=== PATIENT | female | born 1990 | race Caucasian/White ===

== ENCOUNTER → 2018-03-06 14:29 | Outpatient (CLI) | payer OTHER, SELFPAY ==
[2018-03-06 15:27] LABS: Follicle Stimulating Hormone 7.63 mIU/mL; Prolactin 12.5 ng/mL (3.0-18.6)
[2018-03-06 16:41] LABS: Thyroid Stimulating Hormone 2.76 uIU/mL (0.47-4.68)
[2018-03-10 15:53] LABS: Estradiol 57 pg/mL
[2018-03-10 17:19] LABS: Inhibin B 117 pg/mL
[2018-03-11 15:42] LABS: Testosterone Free 6.9 pg/mL (0.1-6.4); Testosterone Total 65 ng/dL (2-45)
== END ==
DX: N91.2 Amenorrhea, unspecified (principal)
CPT/HCPCS: 36415; 82397; 82670; 83001; 83002; 84146; 84402; 84403; 84443

== ENCOUNTER → 2018-05-04 13:05 | Outpatient (CLI) | payer OTHER, SELFPAY ==
[2018-05-06 15:28] LABS: Progesterone 17.6 ng/mL
== END ==
DX: N91.2 Amenorrhea, unspecified (principal)
CPT/HCPCS: 36415; 84144

== ENCOUNTER → 2019-07-29 15:09 | Outpatient (CLI) | payer OTHER, SELFPAY ==
[2019-07-29 15:46] LABS: Add Manual Diff / Slide Review NO; Basophils Absolute Auto 100 /uL (0-100); Basophils Percent Auto 1.1 % (0-2); Eosinophils Absolute Auto 0 /uL (0-450); Eosinophils Percent Auto 0.4 % (2-4); Hematocrit 38.9 % (36-46); Hemoglobin 13.4 g/dL (12.0-16.0); Lymphocytes Absolute Auto 3200 /uL (1100-4500); Lymphocytes Percent Auto 28.9 % (25-40); Mean Corpuscular HGB Conc 34.3 % (30-36); Mean Corpuscular Hemoglobin 30.9 PG (26-34); Mean Corpuscular Volume 90.3 fL (80-100); Monocytes Absolute Auto 600 /uL (0-900); Monocytes Percent Auto 5.3 % (3-14); Neutrophils Absolute Auto 7100 /uL (1500-7000); Neutrophils Percent Auto 64.3 % (50-75); Platelet Count 298 X10^3/uL (150-400); Red Blood Cell Count 4.31 X10^6/uL (4.0-5.2); Red Cell Distribution Width 12.8 % (11.6-14.8)
[2019-07-29 15:50] LABS: Appearance Urine UA CLEAR; Bilirubin Urine UA NEGATIVE (NEGATIVE); Color Urine UA YELLOW; Glucose Urine UA NEGATIVE (Negative); Ketones Urine UA NEGATIVE (NEGATIVE); Leukocyte Esterase Urine UA NEGATIVE (NEGATIVE); Nitrite Urine UA NEGATIVE (Negative); Occult Blood Urine UA TRACE-INTACT (Negative); Protein Urine UA NEGATIVE (Negative); Specific Gravity Urine UA <=1.005 (1.000-1.035); Urobilinogen Urine UA 0.2 E.U./dL (0.2)
[2019-07-29 17:08] LABS: Hepatitis B Surface Antigen NEGATIVE s/c (NEGATIVE)
[2019-07-29 17:24] LABS: HIV 1 & 2 Ab/Ag 4th Gen Combo NEGATIVE (NEGATIVE); Hep C Virus Ab w/Reflex Quant NEGATIVE s/c (NEGATIVE)
[2019-07-31 20:08] LABS: RPR Screen Nonreactive (Nonreactive)
== END ==
PROVIDERS: Visit Provider Obstetrics & Gynecology
DX: Z34.01 Encounter for supervision of normal first pregnancy, first trimester (principal)
CPT/HCPCS: 36415; 80055; 81003; 86787; 86803; 86850; 86900; 86901; 87077; 87086; 87389

== ENCOUNTER → 2019-08-25 14:20 | Outpatient (CLI) | payer OTHER, SELFPAY ==
[2019-08-25 14:38] LABS: Specimen Label NATERA
== END ==
PROVIDERS: Visit Provider Obstetrics & Gynecology
DX: Z34.01 Encounter for supervision of normal first pregnancy, first trimester (principal)
CPT/HCPCS: 36415; 99001

== ENCOUNTER → 2019-10-05 12:32 | Outpatient (CLI) | payer OTHER, SELFPAY ==
[2019-10-11 15:06] LABS: AFP, Serum 38.1 ng/mL; Calc Gestational Age 15.9; Est Date Determined by ULTRASOUND; Maternal Weight 181 lbs; Number of Fetuses 1; Prev Pregnancies Down Syndrome NOT GIVEN
== END ==
PROVIDERS: Visit Provider Obstetrics & Gynecology
DX: Z34.02 Encounter for supervision of normal first pregnancy, second trimester (principal)
CPT/HCPCS: 36415; 82105

== ENCOUNTER → 2019-10-27 14:04 | Outpatient (CLI) | payer OTHER, SELFPAY ==
--- NOTE | 2019-10-27 14:05 | DI.US.S_ITS ---
PROCEDURE: US OB >= 14 WEEKS FETUS INDICATIONS: ANATOMY OUTSIDE/PRIOR DATING DATA: Last menstrual period (LMP): 05/29/19. LMP-based estimated date of delivery (MEGA): 03/04/20. First dating scan (date and location): 10/27/19. Estimated date of delivery (MEGA) from first dating scan: 03/12/20. TECHNIQUE: Real-time scanning was performed of the fetus, with image documentation and biometric measurements. Endovaginal scanning: No COMPARISON: [facility], [place], OB < 14 WEEKS, 08/25/2019, 14:07. FINDINGS: General: A single living intrauterine gestation is present. Presentation: Breech. Placenta: Placental position is anterior, and low-lying with the inferior edge of the placenta 2.2 cm above the internal cervical os. Amniotic fluid index: 13.6 cm, normal range is 5-24 cm. heart rate: 149 beats per minute. Maternal cervical canal: 3.8 cm long. Normal lower limit is 2.5 cm. biometrics: Biparietal diameter: 20 weeks 2 days Head circumference: 20 weeks 4 days Abdominal circumference: 20 weeks 2 days Femur length: 20 weeks 3 days Estimated gestational age from initial scan: not applicable. Composite gestational age from present scan: 20 weeks 3 days Estimated weight and percentile: 340 g Measurement variability for biometric dating: +/- 7 days from 14 weeks to 15 weeks 6 days gestation, +/- 10 days from 16 weeks to 21 weeks 6 days gestation, +/- 2 weeks from 22 weeks to 27 weeks 6 days gestation, +/- 3 weeks for 28 weeks gestation or later. weight reference: 4500 g or EFW >90/95% is considered macrosomia or large for gestational age. EFW <10% is small for gestational age. EFW 5% or less is considered intra-uterine growth restriction. Anatomic survey: Neuro: Ventricles are non-dilated at less than 10 mm. Cisterna magna is normal at 3-11 mm. Cerebellum is normal in size and morphology. Cord plexus cyst. Nuchal skin fold: Normal at less than 6 mm between 14-21 weeks gestational age. Face: Nose and lips, facial profile are normal. Spine: No evidence for spina bifida. Heart: 4-chambered heart is present, with normal ventricular outflow tracts. Diaphragm: Diaphragm is intact. Stomach: Left-sided stomach is present. Kidneys: No hydronephrosis. Normal is less than 5 mm in 2nd trimester, less than 7 mm in 3rd trimester. Cord: 3-vessel cord has orthotopic insertion. Bladder: Normal in size. Extremities: All 4 extremities identified. IMPRESSION: 1. Single living IUP with mean composite gestational age of 20 weeks 3 days corresponding to ultrasound MEGA of 03/12/20. 2. Small choroid plexus cyst present: in isolation, no association with aneuploidy. Anatomic survey otherwise is normal. 3. Low lying anterior placenta. Followup recommended. Dictated by: Eliu Russell [facility] Interpreted: Marcie Rosales MD on 10/27/2019 at 16:56 Approved by: Marcie Rosales M.D. on 10/27/2019 at 19:54
== END ==
PROVIDERS: Referring Provider Obstetrics & Gynecology; Visit Provider Obstetrics & Gynecology
DX: Z34.02 Encounter for supervision of normal first pregnancy, second trimester (principal); Z3A.20 20 weeks gestation of pregnancy
CPT/HCPCS: 76811

== ENCOUNTER → 2019-12-24 11:06 | Outpatient (CLI) | payer OTHER, SELFPAY ==
[2019-12-24 12:46] LABS: Hematocrit 33.5 % (36-46); Hemoglobin 11.4 g/dL (12.0-16.0)
[2019-12-24 12:59] LABS: GTT (PREG) 1 Hour PP 50gm Dose 180 mg/dL (76-139)
== END ==
PROVIDERS: Referring Provider Obstetrics & Gynecology; Visit Provider Obstetrics & Gynecology
DX: Z34.02 Encounter for supervision of normal first pregnancy, second trimester (principal); Z3A.26 26 weeks gestation of pregnancy
CPT/HCPCS: 36415; 82950; 85014; 85018

== ENCOUNTER → 2019-12-31 11:57 | Outpatient (CLI) | payer OTHER, SELFPAY ==
--- NOTE | 2019-12-31 11:58 | DI.US.S_ITS ---
PROCEDURE: US OB FOLLOW UP INDICATIONS: F/U CHOROID PLEXUS CYST AND PLACENTAL LOCATION OUTSIDE/PRIOR DATING DATA: Last menstrual period (LMP): 02/26/19. LMP-based estimated date of delivery (MEGA): 03/04/20. First dating scan (date and location): 10/27/19. Estimated date of delivery (MEGA) from first dating scan: 03/12/20. TECHNIQUE: Real-time scanning was performed of the fetus, with image documentation. COMPARISON: [facility], OB >= 14 WEEKS FETUS, 10/27/2019, 14:19. [facility], , OB < 14 WEEKS, 08/25/2019, 14:07. [facility], , OB < 14 WEEKS, 08/03/2019, 8:19. FINDINGS: A single living intrauterine gestation is present. Presentation: Vertex. Placenta: Placental position is anterior, without previa. Amniotic fluid index: 13.4 cm, normal range is 5-24 cm. heart rate: 139 beats per minute. Maternal cervical canal: 4.6 cm long. Estimated gestational age from initial scan: 29 weeks 5 days Miscellaneous: No choroid plexus cyst identified on current exam. IMPRESSION: 1. No visualized choroid plexus cyst. Dictated by: Alexa Castrejon M.D. on 12/31/2019 at 13:56 Approved by: Alexa Castrejon M.D. on 12/31/2019 at 14:03
== END ==
PROVIDERS: Referring Provider Obstetrics & Gynecology; Visit Provider Obstetrics & Gynecology
DX: O35.0XX0 Maternal care for (suspected) central nervous system malformation in fetus, not applicable or unspecified (principal); Z3A.29 29 weeks gestation of pregnancy
CPT/HCPCS: 76816

== ENCOUNTER → 2020-01-03 08:32 | Outpatient (CLI) | payer OTHER, SELFPAY ==
[2020-01-03 10:01] LABS: Glucose Fasting Gestational 91 mg/dL (76-95)
[2020-01-03 10:48] LABS: Glucose 1 Hour Gest 198 mg/dL (76-180)
[2020-01-03 12:02] LABS: Glucose Tol Interp,Gestational INTERPRETATION
[2020-01-03 12:02] LABS: Glucose 2 Hour Gest 184 mg/dL (76-155)
[2020-01-03 13:23] LABS: Glucose 3 Hour Gest 170 mg/dL (76-140)
== END ==
PROVIDERS: PCP Obstetrics & Gynecology; Referring Provider Obstetrics & Gynecology; Visit Provider Obstetrics & Gynecology
DX: O99.810 Abnormal glucose complicating pregnancy (principal)
CPT/HCPCS: 36415; 82951; 82952

== ENCOUNTER → 2020-01-25 15:54 | Outpatient (CLI) | payer OTHER, SELFPAY ==
--- NOTE | 2020-01-25 15:56 | DI.US.S_ITS ---
PROCEDURE: US OB LIMITED INDICATIONS: OB GROWTH US OUTSIDE/PRIOR DATING DATA: Last menstrual period (LMP): 05/29/2019. LMP-based estimated date of delivery (MEGA): 03/04/2020. First dating scan (date and location): 10/27/2019. [facility]. Estimated date of delivery (MEGA) from first dating scan: 03/12/2020. TECHNIQUE: Real-time scanning was performed of the fetus, with image documentation and biometric measurements. Biophysical profile was also obtained. Endovaginal scanning: Not performed. COMPARISON: [facility], [place], US OB >= 14 WEEKS FETUS, 01/19/2020, 14:02. FINDINGS: General: A single living intrauterine gestation is present. Presentation: Vertex. Placenta: Placental position is anterior, without previa. Amniotic fluid index: 17.3 cm, normal range is 5-24 cm. heart rate: 153 beats per minute. Maternal cervical canal: Not well-seen. biometrics: Biparietal diameter: 8.5 cm. 34 weeks 3 days. Head circumference: 31.8 cm. 35 weeks 5 days. Abdominal circumference: 29.1 cm. 33 weeks 1 day. Femur length: 6.6 cm. 34 weeks 1 day. Estimated gestational age from initial scan: 33 weeks 2 days. Composite gestational age from present scan: 34 weeks 2 days. Estimated weight and percentile: 2282 g. 58th percentile. Measurement variability for biometric dating: +/- 7 days from 14 weeks to 15 weeks 6 days gestation, +/- 10 days from 16 weeks to 21 weeks 6 days gestation, +/- 2 weeks from 22 weeks to 27 weeks 6 days gestation, +/- 3 weeks for 28 weeks gestation or later. weight reference: 4500 g or EFW >90/95% is considered macrosomia or large for gestational age. EFW <10% is small for gestational age. EFW 5% or less is considered intra-uterine growth restriction. IMPRESSION: 1. [place] living intrauterine at 34 weeks 2/7 days based on today's ultrasound. This is concordant with the prior ultrasound +/- 3 weeks. Estimated weight is 2282 g. 58th percentile. 2. Normal placenta and amniotic fluid. Dictated by: Hola Nickerson M.D. on 01/25/2020 at 16:50 Approved by: Hola Nickerson M.D. on 01/25/2020 at 16:54
== END ==
PROVIDERS: PCP Obstetrics & Gynecology; Referring Provider Obstetrics & Gynecology; Visit Provider Obstetrics & Gynecology
DX: O24.419 Gestational diabetes mellitus in pregnancy, unspecified control (principal); Z3A.34 34 weeks gestation of pregnancy
CPT/HCPCS: 76815

== ENCOUNTER 2020-01-31 13:10 | Outpatient (CLI) | payer OTHER, SELFPAY ==
--- NOTE | 2020-01-31 13:42 | P.TNLD_ITS ---
Visit Information Visit Information Date of evaluation: 01/31/20 Primary OB Provider: Sahara Coelho Reason for Evaluation: Yes non-stress test Comments/Additional reasons for admission: This patient is a 29yo P0 @33 weeks with GMDA1, presenting for scheduled testing with no obstetric complaints. 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) UTI (urinary tract infection) (Acute) Family History Father Liver cirrhosis Family/Other Leukemia Social History marital status: pets and animals: Yes (Has X 5 cats and aware) education level: college occupational status: employed current occupational exposures/hazards: No special liban needs: Yes (Zoroastrianism) leisure activities: exercise Smoking Status: Never smoker Evaluation Evaluation Baseline heart rate: 120 Variability: Moderate (11-25) monitor accelerations: Present monitor decelerations: Absent Category of Tracing: I Diagnosis, Plan/Disposition Plan/Disposition Plan: Discharge home with routine follow up. OB Disposition: home
== END 2020-01-31 13:40 | disposition home or self-care (01) ==
LOC: LABOR 13:20 → OB 15:10
PROVIDERS: PCP Obstetrics & Gynecology; Referring Provider Obstetrics & Gynecology; Visit Provider Obstetrics & Gynecology
DX: O24.419 Gestational diabetes mellitus in pregnancy, unspecified control (principal); Z3A.32 32 weeks gestation of pregnancy
CPT/HCPCS: 59025; G0378; G0379

== ENCOUNTER 2020-02-03 11:40 | Outpatient (CLI) | payer OTHER, SELFPAY | END 2020-02-03 12:15 | disposition home or self-care (01) | LOC: LABOR 12:17 → OB 02-04 11:57 | PROVIDERS: PCP Obstetrics & Gynecology; Referring Provider Obstetrics & Gynecology; Visit Provider Obstetrics & Gynecology | DX: O24.419 Gestational diabetes mellitus in pregnancy, unspecified control (principal); Z3A.33 33 weeks gestation of pregnancy | CPT/HCPCS: 59025; G0378; G0379 ==

== ENCOUNTER 2020-02-07 14:26 | Outpatient (CLI) | payer OTHER, SELFPAY ==
--- NOTE | 2020-02-07 15:29 | PM.OBTRLD ---
Visit Information Visit Information Date of evaluation: 02/07/20 Primary OB Provider: Sahara Coelho Reason for Evaluation: Yes non-stress test Comments/Additional reasons for admission: Patient is a 29yo P0 @33 weeks with GDMA1 and borderline LGA presenting for routine testing with no obstetrical complaints. Vital Signs Vital Signs: 115/75, HR 85 PFSH Social History marital status: pets and animals: Yes (Has X 5 cats and aware) education level: college occupational status: employed current occupational exposures/hazards: No special liban needs: Yes (Mandaen) leisure activities: exercise Smoking Status: Never smoker Evaluation Evaluation Baseline heart rate: 120 Variability: Average (6-10) monitor accelerations: Present monitor decelerations: Absent Contraction Frequency (minutes): 5 Category of Tracing: I Diagnosis, Plan/Disposition Plan/Disposition Plan: Home with routine follow up. OB Disposition: home
== END 2020-02-07 15:00 | disposition home or self-care (01) ==
LOC: LABOR 15:55 → OB 02-08 11:37
PROVIDERS: PCP Obstetrics & Gynecology; Referring Provider Obstetrics & Gynecology; Visit Provider Obstetrics & Gynecology
DX: O24.419 Gestational diabetes mellitus in pregnancy, unspecified control (principal); Z3A.33 33 weeks gestation of pregnancy
CPT/HCPCS: 59025; G0378; G0379

== ENCOUNTER 2020-02-09 13:40 | Outpatient (CLI) | payer OTHER, SELFPAY | END 2020-02-09 14:09 | disposition home or self-care (01) | LOC: LABOR 13:43 → OB 02-15 12:33 | PROVIDERS: PCP Obstetrics & Gynecology; Referring Provider Obstetrics & Gynecology; Visit Provider Obstetrics & Gynecology | DX: O24.419 Gestational diabetes mellitus in pregnancy, unspecified control (principal); Z3A.34 34 weeks gestation of pregnancy | CPT/HCPCS: 59025; G0378; G0379 ==

== ENCOUNTER 2020-02-14 14:28 | Outpatient (CLI) | payer OTHER, SELFPAY ==
--- NOTE | 2020-02-14 15:09 | P.TNLD_ITS ---
Visit Information Visit Information Date of evaluation: 02/14/20 Primary OB Provider: Sahara Coelho Reason for Evaluation: Yes non-stress test Comments/Additional reasons for admission: Patient is a P0 with GDMA1 who p resents from home for decreased movement with no other obstetrical complaints. 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) UTI (urinary tract infection) (Acute) Family History Father Liver cirrhosis Family/Other Leukemia Social History marital status: pets and animals: Yes (Has X 5 cats and aware) education level: college occupational status: employed current occupational exposures/hazards: No special liban needs: Yes (Denominational) leisure activities: exercise Smoking Status: Never smoker Review of Systems Constitutional Constitutional: Reports system reviewed and no additional complaints, except as documented Exam Vital Signs (past 8 hours): 114/77, HR 82 Evaluation Evaluation Baseline heart rate: 120 Variability: Moderate (11-25) monitor accelerations: Present monitor decelerations: Absent Contraction Frequency (minutes): 6 Category of Tracing: I Diagnosis, Plan/Disposition Plan/Disposition Plan: BPP ordered, per DI patient sent to imaging department. OB Disposition: home
--- NOTE | 2020-02-14 15:09 | DI.US.S_ITS ---
PROCEDURE: US OB BIOPHYSICAL PROFILE INDICATIONS: DECREASED MOVEMENT OUTSIDE/PRIOR DATING DATA: Last menstrual period (LMP): 05/29/19. LMP-based estimated date of delivery (MEGA): 03/04/20. First dating scan (date and location): 10/27/19. Estimated date of delivery (MEGA) from first dating scan: 03/12/20. TECHNIQUE: Real-time scanning was performed of the fetus for biophysical profile, with image documentation. Color and pulse Doppler interrogation was also performed of the umbilical artery near its insertion into the placenta. Endovaginal scanning: Not needed COMPARISON: None. FINDINGS: General: A single living intrauterine gestation is present. Presentation: Vertex. Placenta: Placental position is anterior, without previa. Amniotic fluid index: 14.5 cm, normal range is 5-24 cm. heart rate: 153 beats per minute. Maternal cervical canal: Not well-seen due to vertex presentation. Biophysical profile: 8 of 8 possible points, normal. Tone: 2 points. Movement: 2 points. Respiration: 2 points. Largest pocket of fluid: 2 points. IMPRESSION: Biophysical profile of yields age of 8 possible points, viable intrauterine gestation in vertex presentation with normal amniotic fluid volume. Dictated by: Franklyn Carrillo M.D. on 02/14/2020 at 16:42 Approved by: Franklyn Carrillo M.D. on 02/14/2020 at 16:44
== END 2020-02-14 15:20 | disposition home or self-care (01) ==
LOC: LABOR 15:17 → OB 02-15 15:01
PROVIDERS: PCP Obstetrics & Gynecology; Referring Provider Obstetrics & Gynecology; Visit Provider Obstetrics & Gynecology
DX: O36.8130 Decreased fetal movements, third trimester, not applicable or unspecified (principal); O24.419 Gestational diabetes mellitus in pregnancy, unspecified control; Z3A.34 34 weeks gestation of pregnancy
CPT/HCPCS: 59025; 76819; G0378; G0379

== ENCOUNTER → 2020-02-16 09:05 | Outpatient (CLI) | payer OTHER, SELFPAY ==
[2020-02-17 16:30] LABS: Strep Grp B PCR NEG for Grp B Strep
== END ==
PROVIDERS: PCP Obstetrics & Gynecology; Visit Provider Obstetrics & Gynecology
DX: Z34.03 Encounter for supervision of normal first pregnancy, third trimester (principal); Z3A.35 35 weeks gestation of pregnancy
CPT/HCPCS: 87653

== ENCOUNTER 2020-02-21 11:17 | Outpatient (CLI) | payer OTHER, SELFPAY ==
--- NOTE | 2020-02-21 11:42 | PM.OBTRLD ---
Visit Information Visit Information Date of evaluation: 02/21/20 Primary OB Provider: Sahara Coelho Reason for Evaluation: Yes non-stress test Comments/Additional reasons for admission: This patient is a 29yo P0 @35+5 with well controlled GDMA1, presenting for an NST as part of her weekly testing. 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) UTI (urinary tract infection) (Acute) Family History Father Liver cirrhosis Family/Other Leukemia Social History marital status: pets and animals: Yes (Has X 5 cats and aware) education level: college occupational status: employed current occupational exposures/hazards: No special liban needs: Yes ([employer]ism) leisure activities: exercise Smoking Status: Never smoker Review of Systems Constitutional Constitutional: Reports system reviewed and no additional complaints, except as documented Evaluation Evaluation Baseline heart rate: 120 Variability: Moderate (11-25) monitor accelerations: Present monitor decelerations: Absent Category of Tracing: I Diagnosis, Plan/Disposition Plan/Disposition Plan: Home with routine precautions. OB Disposition: home
== END 2020-02-21 12:13 | disposition home or self-care (01) ==
LOC: LABOR 11:22 → OB 02-22 10:59
PROVIDERS: PCP Obstetrics & Gynecology; Referring Provider Obstetrics & Gynecology; Visit Provider Obstetrics & Gynecology
DX: O24.419 Gestational diabetes mellitus in pregnancy, unspecified control (principal); Z3A.35 35 weeks gestation of pregnancy
CPT/HCPCS: 59025; G0378; G0379

== ENCOUNTER 2020-02-28 11:10 | Outpatient (CLI) | payer OTHER, SELFPAY ==
--- NOTE | 2020-02-28 13:57 | PM.OBTRLD ---
Visit Information Visit Information Date of evaluation: 02/28/20 Primary OB Provider: Sahara Coelho Reason for Evaluation: Yes non-stress test Comments/Additional reasons for admission: Patient presenting for NST as part of testing for GDMA1. 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) UTI (urinary tract infection) (Acute) Family History Father Liver cirrhosis Family/Other Leukemia Social History marital status: pets and animals: Yes (Has X 5 cats and aware) education level: college occupational status: employed current occupational exposures/hazards: No special liban needs: Yes (Nondenominational) leisure activities: exercise Smoking Status: Never smoker Evaluation Evaluation Baseline heart rate: 120 Variability: Moderate (11-25) monitor accelerations: Present monitor decelerations: Absent Category of Tracing: I Diagnosis, Plan/Disposition Plan/Disposition Plan: Home with routine precautions and follow up. OB Disposition: home
== END 2020-02-28 11:29 | disposition home or self-care (01) ==
LOC: OB 02-29 11:04
PROVIDERS: PCP Obstetrics & Gynecology; Referring Provider Obstetrics & Gynecology; Visit Provider Obstetrics & Gynecology
DX: O24.419 Gestational diabetes mellitus in pregnancy, unspecified control (principal); Z3A.36 36 weeks gestation of pregnancy
CPT/HCPCS: 59025; G0378; G0379

== ENCOUNTER 2020-03-05 21:09 | Outpatient (CLI) | payer OTHER, SELFPAY ==
--- NOTE | 2020-03-06 08:07 | P.TNLD_ITS ---
Visit Information Visit Information Date of evaluation: 03/06/20 Primary OB Provider: Sahara Coelho Reason for Evaluation: Yes non-stress test non-stress test reason: decreased movement Comments/Additional reasons for admission: Patient reports decreased movement @37+5, no other complaints. 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) UTI (urinary tract infection) (Acute) Family History Father Liver cirrhosis Family/Other Leukemia Social History marital status: pets and animals: Yes (Has X 5 cats and aware) education level: college occupational status: employed current occupational exposures/hazards: No special liban needs: Yes (Bahai) leisure activities: exercise Smoking Status: Never smoker Review of Systems Constitutional Constitutional: Reports system reviewed and no additional complaints, except as documented Evaluation Evaluation Baseline heart rate: 120 Variability: Moderate (11-25) monitor accelerations: Present monitor decelerations: Absent Category of Tracing: I Diagnosis, Plan/Disposition Plan/Disposition Plan: Home with plan for BPP at scheduled visit tomorrow. OB Disposition: home
== END 2020-03-05 21:55 | disposition home or self-care (01) ==
LOC: LABOR 21:13 → OB 03-06 11:35
PROVIDERS: PCP Obstetrics & Gynecology; Referring Provider Obstetrics & Gynecology; Visit Provider Obstetrics & Gynecology
DX: O36.8130 Decreased fetal movements, third trimester, not applicable or unspecified (principal); O24.419 Gestational diabetes mellitus in pregnancy, unspecified control; Z3A.37 37 weeks gestation of pregnancy
CPT/HCPCS: 59025; G0378; G0379

== ENCOUNTER 2020-03-13 12:46 | Outpatient (CLI) | payer OTHER, SELFPAY | END 2020-03-13 13:30 | disposition home or self-care (01) | LOC: OB 03-20 10:42 | PROVIDERS: PCP Obstetrics & Gynecology; Referring Provider Obstetrics & Gynecology; Visit Provider Obstetrics & Gynecology | DX: O24.410 Gestational diabetes mellitus in pregnancy, diet controlled (principal); Z3A.38 38 weeks gestation of pregnancy | CPT/HCPCS: 59025; G0378; G0379 ==

== ENCOUNTER 2020-03-14 09:45 | Inpatient (IN) | payer OTHER, SELFPAY ==
--- NOTE | 2020-03-14 11:08 | P.HPOB_ITS ---
OB HPI Date/Time Date of admission: 03/14/20 Date Patient Seen: 03/14/20 Time Patient Seen: 10:45 History of Present Condition Chief complaint: L&B : 1 Para: 0 Estimated Date of Delivery: 03/22/20 Estimated Gestational Age (weeks): 38.5 Narrative: Christelle Gutiérrez is a 29 year old female @ [id number] by early US who presents for evaluation of labor. PROM, large gush of clear fluid at 0600, followed by contractions. Contractions are now mild (3-4/10) and 3-4 minutes apart. +FM. No VB. Routine PN care w/ . complicated by GDMA1 and HSV1 (on suppression). History of Present care: good care Dating criteria: based on 1st trimester US only Ultrasounds: normal mid trimester US and abnormal US findings (Choroid plexus cyst-resolved ) Obstetrical complications: gestational diabetes Medical complications: psychiatric (PTSD, depression and anxiety, stable without medication.) Preadmission Labs Blood type: B (+) positive -: Antibody screen: negative, GBS status: negative, HBsAG: negative, HIV: negative, HSV 1: positive, HSV 2: negative and RPR/VDLR: negative -: Rubella: immune and Varicella: immune HCT: 33.6 HCAB: negative Cell-free DNA: negative 1 hr GTT: 180 Evaluation Evaluation Baseline heart rate: 130 Variability: Moderate (11-25) monitor accelerations: Present monitor decelerations: Absent Contraction Frequency (minutes): 3 Uterine Contraction Intensity: Mild Category of Tracing: I Cervical dilation (cm): 1 Cervical effacement (%): 80 station: -2 Non-invasive Membranes Rupture Test: positive PFSH Medical History Anxiety (Acute) Depression (Acute) 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) UTI (urinary tract infection) (Acute) Family History Father Liver cirrhosis Family/Other Leukemia Social History marital status: pets and animals: Yes (Has X 5 cats and aware) education level: college occupational status: employed current occupational exposures/hazards: No special liban needs: Yes ([employer]) leisure activities: exercise Smoking Status: Never smoker Meds Home Medications and Allergies Home Medications Medication Instructions Recorded Confirmed Type nitrofurantoin 100 mg PO .PRN cap 07/29/19 03/13/20 History monohydrate/macrocrystals 100 mg capsule prenat.vits,vivi,swm-rovs-ksxgh 1 tab PO DAILY 07/29/19 03/13/20 History blood sugar diagnostic #120 each 01/04/20 03/13/20 Rx blood-glucose meter #1 each 01/04/20 03/13/20 Rx lancets #120 each 01/04/20 03/13/20 Rx Double Electric breast Pump and #1 each 01/28/20 03/13/20 Rx Supplies valacyclovir 500 mg tablet 500 mg PO DAILY #30 tab 02/21/20 03/13/20 Rx Allergies Allergy/AdvReac Type Severity Reaction Status Date / Time No Known Drug Allergies Allergy Verified 03/13/20 11:44 Review of Systems Review of Systems ROS: Yes All systems reviewed with the patient and are negative except as otherwise documented Exam Vital Signs (past 8 hours): BP-135/88, HR-88bpm, RR-16/min, T97.8 Presentation: vertex Amniotic Fluid: clear Assessment and Plan Assessment and Plan Assessment and Plan narrative: Counseled patient on options for expectant vs. active management of PROM. Pt elects immediate admission w/ expectant management. Admit, routine orders w/ SL IV, CBC, T&S and rapid COVID testing. Diabetic diet ordered. Q1hr doppler FHTs until in active labor. Will augment labor if not active by6pm. Reassess in 6 hours or sooner, PRN. Time Spent with Patient Total time spent with greater than 50% in coordination of care (as documented) at patient's floor/unit and/or counseling patient:: 15-24 minutes
[2020-03-14 12:25] LABS: Add Manual Diff / Slide Review NO; Basophils Absolute Auto 100 /uL (0-100); Basophils Percent Auto 0.5 % (0-2); Eosinophils Absolute Auto 0 /uL (0-450); Eosinophils Percent Auto 0.2 % (2-4); Hematocrit 36.3 % (36-46); Hemoglobin 12.3 g/dL (12.0-16.0); Lymphocytes Absolute Auto 2700 /uL (1100-4500); Mean Corpuscular HGB Conc 33.8 % (30-36); Mean Corpuscular Hemoglobin 29.6 PG (26-34); Mean Corpuscular Volume 87.7 fL (80-100); Monocytes Absolute Auto 700 /uL (0-900); Monocytes Percent Auto 5.7 % (3-14); Neutrophils Absolute Auto 9400 /uL (1500-7000); Neutrophils Percent Auto 72.6 % (50-75); Platelet Count 228 X10^3/uL (150-400); Red Blood Cell Count 4.14 X10^6/uL (4.0-5.2); Red Cell Distribution Width 13.4 % (11.6-14.8); White Blood Cell Count 12.9 X10^3/uL (4.5-11.0)
[2020-03-14 13:15] LABS: COVID19 -Nasal RAPID Negative (Negative)
--- NOTE | 2020-03-14 17:29 | P.PNOB_ITS ---
Date/Time Date Patient Seen: 03/14/20 Time Patient Seen: 17:20 Pelvic Exam Dilation (cm): 4 Effacement (%): 90 station: -2 Amniotic membrane status: Leaking Comments: Breathing through regular contractions. Wants to discuss pain relief options. VS: BP 134/88, HR 8bpm, RR16/min Contractions Date/Time contractions began: 1300 Contractions on admission: irregular Monitor mode: Palpation Pitocin rate (mU/min): 0 Contraction frequency (min): 4 Contraction duration (min): 1 Contraction pattern: Regular Contraction intensity: Moderate Status status: Category l Heart Rate Baseline: 120 Comments: Reassuring by IA Q 60 minutes. Assessment and Plan Assessment: active labor Plan: continuous present management Comments: Counseled patient on all pain relief options: IV, epidural, & hydrotherapy. Patient elects epidural. Will switch to continuous EFM, RN noti fied. Continuous labor support throughout epidural placement. Reassess in 4 hours or sooner, PRN.
[2020-03-14] MEDS: fentaNYL 100 MCG/2 ML INJ IV ×3 (17:52→19:51)
[2020-03-14] MEDS: LACTATED RINGERS 1,000 ML 100 ML IV ×2 (17:53→22:28)
[2020-03-14] MEDS: FENT 2MCG/ML BUPIV 0.125% EPI 200 MCG/100 ML PLAST..BAG 10 MCG EPIDURAL (20:00)
[2020-03-14 21:05] VITALS: BP 131/77
[2020-03-14] MEDS: OXYTOCIN PREMIX 30 UNIT/500 ML PLAST..BAG IV (22:28)
--- NOTE | 2020-03-14 22:37 | PM.OBPNLAB ---
Date/Time Date Patient Seen: 03/14/20 Time Patient Seen: 21:20 Pain Control Pain control: epidural Comments: Patient comfortable and happy w/ epidural. Has been able to rest. VS: BP 109/58, HR 83bpm, RR 18/min, T36.9C Temporal Pelvic Exam Dilation (cm): 7 Effacement (%): 90 station: -1 Amniotic membrane status: Leaking Comments: Manual AROM of forebag during exam Contractions Contractions on admission: irregular Monitor mode: Palpation Pitocin rate (mU/min): 0 Contraction frequency (min): 5 Contraction duration (min): 1 Contraction pattern: Regular Contraction intensity: Moderate Status status: Category l Heart Rate Baseline: 110 Monitor Accelerations: Present Monitor Decelerations: Absent Monitor Variability: Moderate Assessment and Plan Assessment: active labor Plan: continuous present management Comments: Counseled on spaced contractions and will recommend pitocin augmentation if contractions continue to space. Encourage continued position changes. Reassess in 4 hours or sooner, PRN.
--- NOTE | 2020-03-15 01:23 | PM.OBPNLAB ---
Date/Time Date Patient Seen: 03/15/20 Time Patient Seen: 01:20 Pain Control Pain control: epidural Comments: Remains comfortable and able to sleep. VS: BP 134/70, HR 103bpm, T36.6C Temporal Pelvic Exam Dilation (cm): 7 Effacement (%): 90 station: -1 Amniotic membrane status: Leaking Contractions Contractions on admission: irregular Monitor mode: Palpation Pitocin rate (mU/min): 0 Contraction frequency (min): 5 Contraction duration (min): 1 Contraction pattern: Regular Contraction intensity: Moderate Status status: Category l Heart Rate Baseline: 110 Monitor Accelerations: Present Monitor Decelerations: Absent Monitor Variability: Moderate Assessment and Plan Assessment: active labor Plan: begin patient augmentation Comments: A: Term primipara Active labor, now slowed SROM X 19 hours without sx of infection Cat I FHR P: Counseled on minimal change in last 4 hours w/ slightly spaced contractions. Recommend pitocin augmentation and position changes w/ peanut ball, patient agrees. Reassess in 4 hours or sooner, PRN.
[2020-03-15] MEDS: FENT 2MCG/ML BUPIV 0.125% EPI 200 MCG/100 ML PLAST..BAG 10 MCG EPIDURAL (03:22)
[2020-03-15] MEDS: LACTATED RINGERS 1,000 ML 100 ML IV (03:31)
--- NOTE | 2020-03-15 04:32 | PM.OBPNLAB ---
Date/Time Date Patient Seen: 03/15/20 Time Patient Seen: 04:20 Pain Control Pain control: epidural Comments: Patient now comfortable and sleeping. Epidural was replaced @ 0300 d/t patient persistent complaint of increasing back pain and pressure. RN by MAMTA @ 0244 was unchanged. RN has been unable to increase pitocin until recently because of patient's discomfort. VS: BP 133/68, HR 106, T37.7C Temporal Pelvic Exam Dilation (cm): 7 Effacement (%): 90 station: -1 Amniotic membrane status: Leaking Contractions Monitor mode: Palpation Pitocin rate (mU/min): 6 Contraction frequency (min): 3 Contraction duration (min): 1 Contraction pattern: Regular Contraction intensity: Moderate Status status: Category l Heart Rate Baseline: 125 Monitor Accelerations: Present Monitor Decelerations: Early Monitor Variability: Moderate Assessment and Plan Assessment: active labor Plan: continuous present management and Comments: Counseled patient on possibly developing chorioamnionitis (diagnostic criteria not yet met) and no cervical change in 8 hours. >30 minute conversation led to patient's request for primary for active phase arrest. Will continue to monitor temperature closely prior to . consulted and supervisor endless track vehicle notified @ [id number].
[2020-03-15 05:53] VITALS: TEMP 38.3
[2020-03-15] MEDS: ACETAMINOPHEN 325 MG TABLET 975 MG PO (05:53)
--- NOTE | 2020-03-15 06:04 | PM.OBPNLAB ---
Date/Time Date Patient Seen: 03/15/20 Time Patient Seen: 06:00 Pain Control Pain control: tolerating well and epidural Comments: Patient remains comfortable. Preparing for transfer to OR. VS: BP 134/70, HR 109, T38.2C Temporal. Pelvic Exam Dilation (cm): 9 Effacement (%): 100 station: 0 Amniotic membrane status: Leaking Comments: CE performed after early decelerations began in the last 30 minutes. Contractions Monitor mode: Palpation Pitocin rate (mU/min): 10 Contraction frequency (min): 3 Contraction duration (min): 1 Contraction pattern: Regular Contraction intensity: Moderate Status status: Category l Heart Rate Baseline: 135 Monitor Accelerations: Present Monitor Decelerations: Early Monitor Variability: Moderate Assessment and Plan Assessment: active labor Plan: continuous present management Comments: OR crew, and notified of significantly changed cervical exam at anterior lip and cancel at this time. Discussed recent diagnosis of chorioamnionitis w/ , amp/gent have been ordered and Tylenol given. agreed w/ plan of care. Will reassess in 1 hour or sooner, PRN.
[2020-03-15 06:40] LABS: Add Manual Diff / Slide Review NO; Basophils Absolute Auto 100 /uL (0-100); Basophils Percent Auto 0.3 % (0-2); Eosinophils Absolute Auto 0 /uL (0-450); Hematocrit 32.9 % (36-46); Hemoglobin 11.3 g/dL (12.0-16.0); Lymphocytes Absolute Auto 1300 /uL (1100-4500); Lymphocytes Percent Auto 6.6 % (25-40); Mean Corpuscular HGB Conc 34.3 % (30-36); Mean Corpuscular Volume 87.2 fL (80-100); Monocytes Absolute Auto 1200 /uL (0-900); Monocytes Percent Auto 6.1 % (3-14); Neutrophils Absolute Auto 17500 /uL (1500-7000); Platelet Count 215 X10^3/uL (150-400); Red Blood Cell Count 3.77 X10^6/uL (4.0-5.2); Red Cell Distribution Width 13.4 % (11.6-14.8); White Blood Cell Count 20.1 X10^3/uL (4.5-11.0)
[2020-03-15] MEDS: AMPICILLIN 2,000 MG in SODIUM CHLORIDE 0.9% 100 ML 200 ML IV (06:48)
--- NOTE | 2020-03-15 06:50 | PM.OBPNLAB ---
Date/Time Date Patient Seen: 03/15/20 Time Patient Seen: 06:00 Pain Control Pain control: tolerating well Pelvic Exam Dilation (cm): 9 Effacement (%): 100 station: 0 Amniotic membrane status: Leaking Contractions Monitor mode: Palpation Contraction frequency (min): 3 Contraction pattern: Regular Contraction intensity: Moderate Status status: Category l
[2020-03-15] MEDS: GENTAMICIN 450 MG in SODIUM CHLORIDE 0.9% 100 ML 111.25 ML IV (07:41)
--- NOTE | 2020-03-15 08:54 | P.PCNOB_ITS ---
Events: Gestational Diabetes (GDMA1), Prolonged Rupture of Membrane (Total ROM 26 hours) and Meconium Stained Fluid Labor & Delivery Delivery date: 03/15/20 Intrapartal events: Prolonged Active Phase, Febrile and Chorioamnionitis Cervical ripening method: none Induction method: none Delivery augmentation: pitocin Delivery monitor: external FHT and external uterine Route of delivery: vacuum extraction Indication for instrumentation: maternal exhaustion L&D Laceration Description: Vaginal - 2nd Degree Delivery repair: chromic (3.0) Estimated blood loss (mL): 250 Anesthesia type: Epidural Narrative: Patient was C/C/+1 @ 0703 and started pushing. Slow progress was made with coaching and encouragement. Maternal exhaustion and Cat II FHR with decelerations to 80's with effective pushing led to consultation for VAVB. applied the vacuum and pulled through a single contraction, see her documentation. VAVB of a vigorous baby boy in BRANDON position w/ no nuchal cord and easy delivery of the shoulders. Terminal meconium was noted. was placed on maternal abdomen for drying and skin to skin. CNM resumed management. The remaining 30 units of pitocin in 500mL LR was increased to 350mL/hr for active management of the third stage of labor. After cessation of pulsation, the cord was double clamped by CNM and cut by FOB. Gentle cord traction led to spontaneous, Schultze delivery of an apparently intact placenta, membranes and 3VC. Fundus immediately firm and bleeding minimal. A 2nd degree right sulcus vaginal laceration was repaired w/ 3.0 chromic in the usual fashion. QBL 250mL. Both mother and baby stable and skin to skin as I left the room. [place] Baby 1: Infant gender: Male Presentation: vertex position: Left Occiput Transverse Placenta delivery description: Spontaneous cord vessel description: 3 Vessels score (1 min): 8 score (5 min): 9 Plan for aftercare: Routine PP orders w/ discontinuation of antibiotics as a single dose of both ampicillin and gentamycin were administered prior to . Anticipate discharge to home in 24-36 hours.
[2020-03-15] MEDS: KETOROLAC 30 MG/ML VIAL IV (09:45)
--- NOTE | 2020-03-15 13:31 | P.CONS_ITS ---
History of Present Illness Consult details Date Patient Seen: 03/15/20 Time Patient Seen: 08:20 Chief complaint: L&B Reason for consult: Maternal exhaustion with pushing and decelerations Requesting provider: Shayy Tesfaye Narrative: Patient had progressed to complete and pushing. She was becoming exhausted the fetus was +1 station. She began having decelerations with slow return to baseline and decision was made to assist with delivery by vacuum extraction. Patient has no questions about the procedure. She was advised of the risks and benefits by her rotary furnace operator. Meds Home Medications and Allergies Home Medications Medication Instructions Recorded Confirmed Type nitrofurantoin 100 mg PO .PRN cap 07/29/19 03/13/20 History monohydrate/macrocrystals 100 mg capsule prenat.vits,vivi,[id number] 1 tab PO DAILY 07/29/19 03/13/20 History blood sugar diagnostic #120 each 01/04/20 03/13/20 Rx blood-glucose meter #1 each 01/04/20 03/13/20 Rx lancets #120 each 01/04/20 03/13/20 Rx Double Electric breast Pump and #1 each 01/28/20 03/13/20 Rx Supplies valacyclovir 500 mg tablet 500 mg PO DAILY #30 tab 02/21/20 03/13/20 Rx Allergies Allergy/AdvReac Type Severity Reaction Status Date / Time No Known Drug Allergies Allergy Verified 03/15/20 06:23 Exam Vital Signs (past 8 hours): - 03/15/20 05:53 Temperature 100.9 F H Narrative Exam Narrative: Patient with good movement of the baby with pushing but not yet. The vacuum was placed x1. With pulling the infant's head delivered without difficulty. There was terminal meconium. The was placed on maternal abdomen. The infant was doing well. The procedure was returned to the rotary furnace operator for cord clamping and repair of any tears. Objective Labs Result Diagrams: 03/15/20 06:32 Labs: Laboratory Results - last 24 hr 03/15/20 06:32 WBC 20.1 H D RBC 3.77 L Hgb 11.3 L Hct 32.9 L MCV 87.2 MCH 30.0 MCHC 34.3 RDW 13.4 Plt Count 215 Neut % (Auto) 87.0 H Lymph % (Auto) 6.6 L Knox % (Auto) 6.1 Eos % (Auto) 0.0 L Baso % (Auto) 0.3 Neut # (Auto) 77642 H Lymph # (Auto) 1300 [place] # (Auto) 1200 H Eos # (Auto) 0 Baso # (Auto) 100 Assessment & Plan Assessment and plan (1) Vacuum-assisted vaginal delivery: Status: Acute Assessment & Plan narrative: Patient with maternal exhaustion and decelerations with successful vacuum assisted vaginal delivery.
[2020-03-15] MEDS: IBUPROFEN 600 MG TABLET PO (16:19)
[2020-03-16] MEDS: IBUPROFEN 600 MG TABLET PO ×2 (03:35→18:15)
--- NOTE | 2020-03-16 08:43 | PM.OBDS.1 ---
Discharge Providers Provider Date of admission: 03/14/20 09:45 Discharge Date: 03/16/20 Primary care physician: Sahara Coelho MD Consults: 03/16/20 08:51 Consult to Hydrodynamics Teacher Routine Comment: Discharge provider: Shayy Tesfaye CNM Summary Discharge Diagnosis (1) Vacuum-assisted vaginal delivery: Status: Acute Problem Details: routine postppartum course, recovering well Time Spent with Patient Time attestation: Total time spent providing and/or coordinating discharge services: Objective Labs Result Diagrams: 03/15/20 06:32 Exam Vital Signs (past 8 hours): BP 113/70, [id number], RR17, T99.1F Temporal Other: Significantly decreased perineal edema, light lochia, fundus firm @ u-1 Psych Appearance: grossly normal and well kempt Mood: congruent mood Discharge Plan Discharge Plan Patient Disposition: Home Discharge orders & Medications Prescriptions: New docusate sodium [DOK] 100 mg Capsule 100 mg PO BID 14 Days Qty: 28 RF: 0 acetaminophen 325 mg Tablet 650 mg PO Q6HR PRN (Reason: Pain, Mild (1-3)) 14 Days Qty: 60 RF: 2 ibuprofen 600 mg Tablet 600 mg PO Q6HR PRN (Reason: Pain, Mild (1-3)) 14 Days Qty: 60 RF: 2 Continued (DME) Double Electric breast Pump and Supplies See Rx Instructions .ROUTE .MEDSUPPLY Qty: 1 RF: 0 prenat.vits,vivi,rme-fxne-binuv Tablet 1 tab PO DAILY RF: 0 nitrofurantoin monohyd/m-cryst [Macrobid] 100 mg capsule 100 mg PO .PRN RF: 0 Discontinued (DME) Blood Glucose Test Strip See Rx Instructions .ROUTE .MEDSUPPLY Qty: 120 RF: 3 (DME) blood-glucose meter [Blood Glucose Monitoring] Kit See Rx Instructions .ROUTE .MEDSUPPLY Qty: 1 RF: 0 (DME) lancets Misc See Rx Instructions .ROUTE .MEDSUPPLY Qty: 120 RF: 3 valacyclovir [Valtrex] 500 mg tablet 500 mg PO DAILY Qty: 30 RF: 2 Follow up/Referrals: Sahara Coelho MD [Primary Care Provider] - Shayy Tesfaye CNM [[employer] Sleeper Cutter] - (2 week telehealth visit scheduled 03/29/20 @ 1145. Patient to schedule 6 week follow-up w/ or myself.) Diet/Activity/Treatments Diet: Diet as Tolerated Activity: 6 weeks of pelvic rest Skin/Wound/Dressing Care Report to your healthcare provider any signs of infection, such as:: night sweats, increased pain, unusual drainage and unusual redness Visit Report/Discharge Packet Instructions: DI for Depression Discharge Data Primary Care Provider: Sahara Coelho
[2020-03-16 10:46] VITALS: BP 113/73; PULSE 68; RESP 17; TEMP 37.3
== END 2020-03-16 17:25 | disposition home or self-care (01) | DRG 805 ==
PROVIDERS: Admitting Provider Nurse Practitioner Obstetrics & Gynecology; PCP Obstetrics & Gynecology; Referring Provider Nurse Practitioner Obstetrics & Gynecology; Visit Provider Nurse Practitioner Obstetrics & Gynecology
DX: O42.12 Full-term premature rupture of membranes, onset of labor more than 24 hours following rupture (principal); O41.1230 Chorioamnionitis, third trimester, not applicable or unspecified; Z37.0 Single live birth; O98.32 Other infections with a predominantly sexual mode of transmission complicating childbirth; A60.00 Herpesviral infection of urogenital system, unspecified; O76 Abnormality in fetal heart rate and rhythm complicating labor and delivery; O77.0 Labor and delivery complicated by meconium in amniotic fluid; O24.429 Gestational diabetes mellitus in childbirth, unspecified control; O70.1 Second degree perineal laceration during delivery; O75.81 Maternal exhaustion complicating labor and delivery; Z3A.38 38 weeks gestation of pregnancy; Z11.59 Encounter for screening for other viral diseases
CPT/HCPCS: 01967; 36415; 59050; 84112; 85025; 86850; 86900; 86901; 87635; 99252; G0379; J0290; J1885; J2590; J3010